=== PATIENT | female | born 1935 | race Caucasian/White ===

== ENCOUNTER 2016-06-02 14:35 | Emergency (ER) | payer OTHER, BC ==
--- NOTE | 2016-06-02 20:06 | ED ORDER SUMMARY ---
..... Patient: NELSON MCNAMARA [facility] VisitID: [id number] [address] [place], [place] [id number] 80y, F Registration Date/Time: 06/02/2016 ORDER SHEET Weight: 65.7 kg (stated) Allergies: Aricept, Namenda GENERAL ORDERS: UA-Culture if indicated Urgent (15:07 06/02/2016 Estrella Turner) (Ack 15:09 Kami) (16:24 KPage-Kuchan R.N.) Cardiac Panel Stat (15:07 06/02/2016 Estrella Turner) (Ack 15:09 Kami) (15:19 KPage-Kuchan R.N.) Amylase Urgent (15:07 06/02/2016 Estrella Turner) (Ack 15:09 Kami) (15:19 KPage-Kuchan R.N.) Lipase Urgent (15:07 06/02/2016 Estrella Turner) (Ack 15:09 Kami) (15:19 KPage-Kuchan R.N.) EKG - ER Stat (15:07 06/02/2016 Estrella Turner) (Ack 15:09 Kami) (15:09 PWeiler ER Tech1) Ethyl Alcohol Urgent (15:08 06/02/2016 Estrella Turner) (Ack 15:09 Kami) (15:19 KPage-Kuchan R.N.) CT Head wo Cont Urgent (17:25 06/02/2016 Estrella Turner) (Ack 17:28 Kami) (Cancelled: Physician Order19:41 Estrella Turner) TSH Urgent (18:34 06/02/2016 Estrella Turner) (Ack 18:37 LNations ER Tech1) (19:35 KPage-Kuchan R.N.) Chest 1V Urgent (20:17 06/02/2016 Estrella Turner) (Ack 20:21 AMcQuoid ER Tech1) (20:29 MCampbell) MEDICATION ORDERS: IV FLUIDS: IV NS : initial bolus none -, then 1000 mL/hr for X1 (NOW) (15:06 06/02/2016 Estrella Turner) (15:32 Nelia Encinas) Zofran IV 4 mg (NOW) (15:07 06/02/2016 Estrella Turner) (15:19 Nelia Encinas) ORDER SHEET NOTES: [Electronically signed by Bakari Rivera Dr. (21:40 06/02/2016)] [Electronically signed by Martha Velasquez R.N. (22:32 06/02/2016)] [Electronically locked/signed by Martha Velasquez R.N. (22:32 06/02/2016)]
--- NOTE | 2016-06-02 20:06 | ED CLINICAL REPORT ---
Clinical Report - Physicians/Mid Levels [facility] [address] [place] [address] 06/02/2016 14:39 Patient: NELSON MCNAMARA Time Seen: 14:40; initial patient contact. Arrived- By ambulance. Historian- patient. HISTORY OF PRESENT ILLNESS The patient recovered at the scene (lasted a few seconds). Chief Complaint: SINGLE SYNCOPAL EPISODE. This occurred just prior to arrival. This did not occur during exertion. At time of event, she was sitting. The patient felt faint and lost consciousness. No seizure activity, incontinence or apnea noted. The patient had preceding symptoms of light-headedness. No preceding symptoms of chest pain. No injuries noted. She currently has weakness. Similar symptoms previously: None. Recent medical care: Not recently seen/assessed. REVIEW OF SYSTEMS No headache, chest pain, palpitations, abdominal pain or vomiting. No diarrhea. She has had dizziness and weakness. All systems otherwise negative, except as recorded above. PAST HISTORY ( Hyperlipidemia. Degenerative Joint Disease. Vitamin B12 deficiency (non anemic). Vitamin D deficiency. Alcohol Intoxication. Fall. Depression. Dementia. Hypothyroidism. Hypertension). Medications: Ergocalciferol Oral. Escitalopram Oxalate Oral (Tablet 5 mg) 1 tablet, daily. Hydroxychloroquine Sulfate Oral (Tablet 200 mg) 1 tablet, BID. Ibuprofen Oral (Tablet 800 mg) 1 tablet, 3x a day. Levothyroxine Sodium Oral 175 mcg, daily. Simvastatin Oral (Tablet 20 mg) 1 tablet, daily. Valsartan Oral (Tablet 40 mg) 1 tablet, daily. Vitamin B-12 Oral (Tablet 1000 mcg) 1 tablet, daily (SL). Allergies: Aricept. Namenda. SOCIAL HISTORY Never smoker. Regular alcohol use. No drug use. ADDITIONAL NOTES The nursing notes have been reviewed. PHYSICAL EXAM Vital Signs: 06/02/2016 14:41 BP: 200/85. HR: 73. RR: 21. O2 saturation: 96%. Temp: 98.2 F. Have been reviewed. Hypertensive. Heart rate normal. Tachypneic. Temperature normal. Oxygen saturation normal. Appearance: Alert. No acute distress. Eyes: Pupils equal, round and reactive to light. Extraocular movements normal. ENT: Normal ENT inspection. Moist mucous membranes. Neck: Normal inspection. Neck supple. CVS: Normal heart rate and rhythm. Heart sounds normal. Respiratory: No respiratory distress. Breath sounds normal. Skin: Skin warm and dry. Normal skin color. No rash. Extremities: No calf tenderness. No lower extremity edema. Neuro: Alert. Oriented X 3. Mood/affect normal. Speech normal. Cranial nerves normal (as tested). No motor deficit. No sensory deficit. LABS, X-RAYS, AND EKG EKG: EKG time: (1455). No acute process. No acute ischemia. Normal EKG. Normal sinus rhythm. Rate: 77. Normal P waves. Normal YAAKOV. Normal QRS complex. Normal axis. Normal ST and T waves. Prolonged QTc (475). Prior EKG unavailable. The study has been interpreted contemporaneously by me. The study has been independently viewed by me. The EKG appears to be a good tracing. Interpretation time: 1455. Chest X-ray: No acute disease. Normal lung markings present. No infiltrate. Views: AP. Technique: good. The X-rays were independently viewed by me and interpreted contemporaneously by me. A comparison with prior films reveals that the findings are unchanged. Interpretation time: 20:35. Laboratory Tests: UA-Culture if indicated: (TRACIE: 06/02/2016 15:44) ( MsgRcvd 06/02/2016 16:21) Final results Test Result Flag Units (Reference) URINE COLOR YELLOW URINE APPEARANCE CLEAR URINE GLUCOSE NEGATIVE (NEGATIVE) URINE BILIRUBIN NEGATIVE (NEGATIVE) URINE KETONE NEGATIVE (NEGATIVE) URINE SPECIFIC GRAVITY >= 1.030 (1.010-1.030) URINE PH 5.0 (5.0-8.0) URINE PROTEIN NEGATIVE (NEGATIVE) URINE UROBILINOGEN 0.2 EU/dL (0.2-1.0) URINE NITRITE NEGATIVE (NEGATIVE) URINE BLOOD NEGATIVE (NEGATIVE) URINE LEUK ESTERASE NEGATIVE (NEGATIVE) URINE RBC NONE SEEN rbc/hpf (0-1) URINE WBC NONE SEEN wbc/hpf (0-1) URINE EPITHELIAL CELLS 1-3 EPI/hpf (0-5) URINE BACTERIA FEW (1+) (NONE SEEN) URINE COMMENT CULT NOT INDICATED URINE CULTURES ARE SET-UP BASED ON THE FOLLOWING CRITERIA:POSITIVE NITRITEPOSITIVE LEUKOCYTE ESTERASEGREATER THAN 10 WHITE BLOOD CELLSMODERATE (2+) OR GREATER BACTERIA CBC w Diff: (TRACIE: 06/02/2016 15:03) ( [facility] 06/02/2016 15:40) Final results Test Result Flag Units (Reference) WHITE BLOOD COUNT 6.8 K/uL (4.5-11.5) RED BLOOD COUNT 4.14 M/uL (4.00-5.20) HEMOGLOBIN 13.3 gm/dL (12.0-16.0) HEMATOCRIT 39.7 % (36.0-46.0) MEAN CELL VOLUME 96 fL (80-100) MEAN CORPUSCULAR HGB 32 pg (26-34) MEAN CORPUSCULAR HGB CONC 33 g/dL (31-37) RED CELL DISTRIBUTION WIDTH 14.2 % (11.6-14.8) PLATELET COUNT 164 K/uL (150-400) NEUTROPHIL % 73.3 % (50-75) LYMPH % 16.5 L % (25-40) MONO % 7.8 % (3-14) EOSINOPHIL % 2.0 % (0-4) BASOPHIL % 0.4 % (0-2) TSH: (TRACIE: 06/02/2016 15:03) ( [facility] 06/02/2016 19:04) Final results Test Result Flag Units (Reference) THYROID STIMULATING HORMONE 0.379 uIU/mL (0.30-3.74) CHEM 13 PANEL: (TRACIE: 06/02/2016 15:03) ( [facility] 06/02/2016 16:00) Final results Test Result Flag Units (Reference) GLUCOSE 99 mg/dL (70-110) BUN 16 mg/dL (7-18) CREATININE 0.7 mg/dL (0.6-1.3) Estimated GFR >60 mL/min Estimated GFR- >60 mL/min Note: Persistent reduction over 3 months in eGFR<60 mL/min/1.73 m2 defines CKD. Patients with eGFR values>=60 mL/min/1.73 m2 may also have CKD if evidence ofpersistent proteinuria. Additional information may be foundat www.kidney.org. SODIUM 144 mmol/L (136-145) POTASSIUM 4.1 mmol/L (3.5-5.1) CHLORIDE 108 H mmol/L (98-107) CARBON DIOXIDE 23 mmol/L (21-32) CALCIUM 9.4 mg/dL (8.5-10.1) TOTAL PROTEIN 6.9 g/dL (6.4-8.2) ALBUMIN 3.7 g/dL (3.3-5.0) BILIRUBIN, TOTAL 0.4 mg/dL (0.0-1.0) ALKALINE PHOSPHATASE 86 U/L (46-116) AST (SGOT) 19 U/L (15-37) ALT (SGPT) 9 L U/L (12-78) MAGNESIUM 1.8 mg/dL (1.8-2.4) LIPASE 136 U/L (73-393) AMYLASE 39 U/L (25-115) CPK 81 U/L (24-260) TROPONIN I <0.05 ng/mL (0.00-1.5) TROPONIN REFERENCE RANGE:<0.1 NEGATIVE0.1-1.5 INDETERMINANT>1.5 POSITIVE ETHYL ALCOHOL 3 mg/dL (3-10) . PROGRESS AND PROCEDURES Discussed case with hospitalist, (Dr. Plasencia at [facility]. Will accept pt to tele.). Consult obtained from cardiology. Dr. Tara MCCRAY cardiology at [facility], will consult on pt, admit to hospitalist. Disposition: Condition: stable. CLINICAL IMPRESSION Syncope of unknown cause .12 lead EKG performed. Paroxysmal ventricular tachycardia. No Torsade De Pointes, cardiac arrest or sudden . INSTRUCTIONS Follow-up: Blood pressure screening was not performed during this visit because the patient has an active diagnosis of hypertension. (Electronically signed by Bakari Rivera Dr. 06/02/2016 21:40)
--- NOTE | 2016-06-02 20:06 | ED NURSING NOTES ---
Clinical Report - Nurses [facility] [address] [place] [address] 06/02/2016 14:39 Patient: NELSON MCNAMARA TRIAGE Triage time 14:41 May 12 2016. Acuity: LEVEL 2. Chief Complaint: SYNCOPE and (pt from [facility] was playing bingo and had a 4 second syncopal episode, pt returned to baseline per ems/staff- ems found pt diaphoretic after having been ambulated back to room by staff. glucose per ems/wnl, denies injury or pain). Alert. No acute distress. SEPSIS SCREEN: Sepsis Screen: negative. Negative (no infection suspected/documented). MARCIE COMA SCORE: Marcie Coma Scale: 15- eyes open spontaneously (4); best verbal response- oriented x 4 (5); best motor response- obeys commands (6). --14:53 Martha Velasquez R.N. 14:41 06/02/16. BP: 200/85. HR: 73. RR: 21. O2 saturation: 96%. Temp: 98.2 F. Pain level now 0/10. --14:53 Martha Velasquez R.N. Weight: 65.7 kg stated. Height/Length: 65 inches Estimated. BMI: 24.1. --14:51 Martha Velasquez R.N. Medications Escitalopram Oxalate Oral (Tablet 5 mg) 1 tablet, daily. Hydroxychloroquine Sulfate Oral (Tablet 200 mg) 1 tablet, BID. Ibuprofen Oral (Tablet 800 mg) 1 tablet, 3x a day. Levothyroxine Sodium Oral 175 mcg, daily. Simvastatin Oral (Tablet 20 mg) 1 tablet, daily. Valsartan Oral (Tablet 40 mg) 1 tablet, daily. Vitamin B-12 Oral (Tablet 1000 mcg) 1 tablet, daily (). --15:29 Martha Velasquez R.N. Ergocalciferol Oral. --15:30 Martha Velasquez R.N. Medication/allergy information source: EMS and other (facility provided). --14:53 Martha Velasquez R.N. Allergies Aricept. Namenda. --15:29 Martha Velasquez R.N. History Arrived by EMS. Historian: EMS. ( pt reports no pain prior "I just felt like I was going to pass out" pt states woke normal, did her workout, pt does reports she hasn't eaten yet today, pt a/o to self, place, where she lives - not to date). She has had generalized weakness. 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 (250ml NS bolus by ems). See EMS report. SOCIAL HX: Never smoker. Occasional alcohol use; consumes wine by the glass. No infectious disease exposure. SKIN INTEGRITY ASSESSMENT: Skin integrity risk assessment was performed. Risk factors identified include other factors (age). ABUSE ASSESSMENT: No report of abuse. SELF HARM ASSESSMENT: A self harm assessment was performed. The patient answered "no" to the question "Have you recently felt down, depressed, or hopeless?", "Have you noticed less interest or pleasure in doing things?", "Do you have thoughts of harming or killing yourself?", "Are you here because you tried to hurt yourself?", "Have you ever tried to hurt yourself before today?", "Have you recently had thoughts about harming or killing others?" and "Do you have any dangerous items in your possession?". NUTRITIONAL RISK ASSESSMENT: The nutritional risk assessment revealed no deficiencies. FALL RISK ASSESSMENT: Fall risk assessment completed. Risk factors identified include nausea and patient age greater than 65 years, history of fainting and impairment of mobility and cognition. Fall interventions initiated. Patient placed on stretcher. Side rails up x2. Brakes on Bed in low position. Patient visible from nurses' station and identified as a fall risk by ID band. Call light in reach of patient. Instructed not to get up without assistance. FUNCTIONAL ASSESSMENT: Functional assessment performed: independent with the activities of daily living; cognitive impairment- Alzheimer's disease. LEARNING NEEDS ASSESSMENT: A learning needs assessment was performed. Factors affecting the patient's ability to learn include cognitive limitations. --14:53 Page-Kuchan, Karyol, R.N. PROBLEMS: Hyperlipidemia. Degenerative Joint Disease. Vitamin B12 deficiency (non anemic). Vitamin D deficiency. Alcohol Intoxication. Fall. Depression. Dementia. Hypothyroidism. Hypertension. --15:31 Martha Velasqeuz R.N. Interventions ID and allergy band on patient. ID and allergy band checked. SYNCOPE protocol initiated at triage. To treatment room. --14:53 Martha Velasquez R.N. PHYSICAL ASSESSMENT To room via stretcher. Patient gowned. GENERAL / NEURO / PSYCH: Appears in no acute distress. The patient is disoriented to time. Speech within normal limits. Patient appears well-nourished and neat and clean. HEENT: Pupils equal, round and reactive to light. RESPIRATORY: Respirations not labored. Breath sounds within normal limits. CVS: Cardiac rhythm: (SR). Capillary refill less than 2 seconds. GI / : Abdomen soft and nontender. Bowel sounds within normal limits. SKIN: Skin is warm and dry. Normal skin turgor. --14:54 Martha Velasquez R.N. NURSING PROGRESS NOTES Cardiac rhythm: (SR). monitor tech, pulse oximeter and NIBP monitor placed on patient; monitoring and evaluation advisor- Lead II and V5; monitor alarms on. EKG time: (14:50 Jun 02 2016). EKG was performed by a tech. Head of bed elevated. Reassurance given. Two patient identifiers checked. Call light placed in reach. Side rails up x 2. Bed placed in lowest position. Brakes of bed on. Patient ready for evaluation- chart flagged. --14:55 Martha Velasquez R.N. 14:57 06/02/16. BP: 134/67. HR: 80. RR: 19. O2 saturation: 96%. Pain level now 0/10. --14:58 Martha Velasquez R.N. ( pt had some dry heaving upon arrival ,pt reports improved,). --14:58 Martha Velasquez R.N. Checked patient name and birthdate: patient confirmed. Blood samples drawn by tech per protocol and sent to lab: errol set. --14:58 Martha Velasquez R.N. EKG time: (1455). EKG was ordered, performed by oralia wallace and shown to the ED physician. --15:09 Jabier Leonard, ALEX Tech1 15:08 06/02/2016 Site #1 started via IV antecubital space with an 20g angiocath; one attempt. Blood drawn: rainbow set. Labeled in the presence of the patient and sent to the lab. Saline lock flushed with 10 mL saline. --15:18 Martha Velasquez R.N. 15:14 06/02/2016 Zofran (Ondansetron HCl) IVP 4 mg given. via site #1. Allergies verified and confirmed 5 rights. IV patency established. IV site checked: no pain, redness, or swelling. IV flushed thoroughly pre- and post-medication administration. IVP given by RN. --15:19 Martha Velasquez R.N. 15:02 06/02/16. BP: 134/76 taken while lying. HR: 77. 15:02 06/02/16. BP: 148/72 taken while sitting. HR: 81. Additional comments: pt with position change became nauseated, aware and new orders for antiemetic and fluids. 14:57 06/02/16. BP: 134/67. HR: 80. RR: 19. O2 saturation: 96%. Pain level now 0/10. 14:41 06/02/16. BP: 200/85. HR: 73. RR: 21. O2 saturation: 96%. Temp: 98.2 F. Pain level now 0/10. --15:21 Martha Velasquez R.N. 15:32 06/02/2016 Started bag #1 1000 mL IV Fluids IV NS (Saline); at 1000 mL/hr via site #1 via dial-a-flow. Allergies verified and confirmed 5 rights. IV patency established. IV site checked: no pain, redness, or swelling. IV flushed thoroughly pre- and post-medication administration. --15:32 Martha Velasquez R.N. In/out catheterization. During procedure hand hygiene observed and sterile equipment and aseptic technique used. She tolerated procedure well. Patient ID band checked for patient name urine collected with return of yellow-colored urine; sample sent to lab for urinalysis. Specimen labeled in the presence of the patient (straight cath). --15:41 Martha Velasquez R.N. 15:58 06/02/16. BP: 132/74. HR: 78. Pain level now 0/10. --16:00 Martha Velasquez R.N. ( pt had a 35 beat run of vtach, pt reported not noticing "anything" cardiac strip printed , code cart placed outside pts room. will notify ). --16:00 Martha Velasquez R.N. 15:45. ( Patient had 35 beat run of V Tach which resolved on it's own. States feels OK. BP 125/60). --16:07 Nate Cash R.N. 16:24 06/02/2016 Zofran IVP Response: no adverse reaction symptoms have improved the patient feels better. --16:24 Martha Velasquez R.N. ( pt resting quietly, no further dysrhytmias on monitor, pt with call light in hand, watching tv, waiting on Mds further poc). --17:28 Martha Velasquez R.N. Cardiac rhythm: (SR). Head of bed elevated. Reassurance given. Call light placed in reach. Side rails up x 2. Bed placed in lowest position. Brakes of bed on. --17:29 Martha Velasquez R.N. 17:29 06/02/16. BP: 129/59. HR: 79. RR: 17. O2 saturation: 97%. Pain level now 0/10. --17:29 Martha Velasquez R.N. ( pt cont to have runs of vtach, aware, pt moved to room 1 for inc observation and room. pt does not appear to know when she is going in/out of dysrhytmia. pt denies pain,). --18:36 Martha Velasquez R.N. The patient is calm and resting quietly. --18:36 Martha Velasquez R.N. 17:09 06/02/16. ( pads placed on pt for cont runs of vtach,). --18:37 Martha Velasquez R.N. ( repeat ekg in progress). --18:38 Martha Velasquez R.N. monitor tech, pulse oximeter and NIBP monitor placed on patient; monitoring and evaluation advisor- Lead II and V5; monitor alarms on (continuos monitoring with RN at bedside). Two patient identifiers checked. Call light placed in reach. Side rails up x 2. Bed placed in lowest position. Brakes of bed on. --18:38 Martha Velasquez R.N. 18:24 06/02/2016 Site #2 started via IV antecubital space with an 18g angiocath; one attempt. Saline lock flushed with saline. --18:39 Martha Velasqeuz R.N. Cardiac rhythm: (SR wtih intermittent runs of vtabillie- MD aware). --18:40 Martha Velasquez R.N. --18:40 Martha Velasquez R.N. ( 1803 O2/2L NC in place). --18:41 Martha Velasquez R.N. 18:51 06/02/16. BP: 140/71. HR: 81. --18:56 Martha Velasquez R.N. ( pts son and poa called [facility], notified him on his mothers status, he is going to contact his sister and be enroute). --18:58 Martha Velasquez R.N. The patient reports no complaints and she is calm and resting quietly. GENERAL / NEURO / PSYCH: Patient is calm and cooperative. Alert. RESPIRATORY: No respiratory distress. CVS: Cardiac rhythm: sinus rhythm; ventricular tachycardia; (SR with runs of vtach). --19:03 Martha Velasquez R.N. 19:03 06/02/16. BP: 149/71. HR: 76. RR: 19. Pain level now 0/10. --19:03 Martha Velasquez R.N. Call light placed in reach. Side rails up. Bed placed in lowest position. Brakes of bed on. --19:04 Martha Velasquez R.N. ( pt remains on 12 lead to capture pts rhythm if she goes in/out of vtach. pt in SR, assisted on to bedpan, pt voided 155 ml clear yellow urine, pt denies pain, remains at baseline mentation from presentation. pt cont on code monitor, maee, able to make needs know, in front view of nurses station.). --19:34 Martha Velasquez R.N. 19:05 06/02/16. BP: 143/74. HR: 79. RR: 17. O2 saturation: 97%. Pain level now 0/10. --19:34 Martha Velasquez R.N. The patient is calm and resting quietly. --19:37 Martha Velasquez R.N. ( EDT attempting to find bed placement for pt-multiple facilities being contacted). --19:37 Martha Velasquez R.N. ( pt resting quietly, cont in SR on the monitor, pt remains on ekg , speaking with team at in preparation for admission.). --19:46 Martha Velasquez R.N. ( report called to - Lolita DICK- Lolita stated she was part of the team receiving report when Dr Rivera called , she requested copies of ekg, any imaging along with labs and chart.). --20:19 Martha Velasquez R.N. 19:54 06/02/16. ( son and daughter homer arrived at bedside, explained to family plans for transfer to - EDT contacted [facility] with eta of 2044. pt cont in SR, on 12 lead,). --20:21 Martha Velasquez R.N. Call light placed in reach. Side rails up x 1. Bed placed in lowest position. Brakes of bed on. --20:21 Martha Velasquez R.N. Patient waiting for transportation. --20:23 Martha Velasquez R.N. ( pcxr at bedside,). --20:23 Martha Velasquez R.N. ( pt had short run of vtach, pt otherwise in SR, strip printed and placed on chart, waiting [facility] arrival,). --20:53 Martha Velasquez R.N. 20:37 06/02/16. HR: 77. RR: 18. O2 saturation: 97%. Temp: 98.1 F. Pain level now 0/10. --20:53 Martha Velasquez R.N. ( transport here, preparing pt for dc). --20:53 Martha Velasquez R.N. DISPOSITION / DISCHARGE Cardiac rhythm: (SR with runs of vtach). Departure time: 21:03 Jun 02 2016. Discharge instructions provided and reviewed with the family (son and daughter in law). Treatments reviewed (info provided to [facility]). The patient was discharged by the physician. She was discharged home. Transferred to [facility]. Summary of care provided to transport team, EMS, family and transfer facility. Transported via stretcher by nurse and EMS with monitor, defibrillator, IV, O2 and emergency medications. Report was given to a nurse in person. Report included patient's care, treatment, medications, reviewed medication reconcilliation, and condition (including any recent changes or anticipated changes). All questions were answered. Report was acknowledged and care was transferred. ([facility]). Patient's personal items include: shirt, pants, undergarments, socks and jewelry, given to son including clothing and necklace; items were placed in belongings bag. --21:04 Martha Velasquez R.N. 20:53 06/02/16. BP: 128/78. HR: 74. RR: 18. O2 saturation: 97%. Pain level now 0/10. --21:04 Martah Velasquez R.N. Locked/Released at 06/02/2016 22:32 by Martha Velasquez R.N.
--- NOTE | 2016-06-02 20:06 | ED CLINICAL REPORT ---
Clinical Report - Physicians/Mid Levels [facility] [address] [place] [address] 06/02/2016 14:39 Patient: NELSON MCNAMARA Time Seen: 14:40; initial patient contact. Arrived- By ambulance. Historian- patient. HISTORY OF PRESENT ILLNESS The patient recovered at the scene (lasted a few seconds). Chief Complaint: SINGLE SYNCOPAL EPISODE. This occurred just prior to arrival. This did not occur during exertion. At time of event, she was sitting. The patient felt faint and lost consciousness. No seizure activity, incontinence or apnea noted. The patient had preceding symptoms of light-headedness. No preceding symptoms of chest pain. No injuries noted. She currently has weakness. Similar symptoms previously: None. Recent medical care: Not recently seen/assessed. REVIEW OF SYSTEMS No headache, chest pain, palpitations, abdominal pain or vomiting. No diarrhea. She has had dizziness and weakness. All systems otherwise negative, except as recorded above. PAST HISTORY ( Hyperlipidemia. Degenerative Joint Disease. Vitamin B12 deficiency (non anemic). Vitamin D deficiency. Alcohol Intoxication. Fall. Depression. Dementia. Hypothyroidism. Hypertension). Medications: Ergocalciferol Oral. Escitalopram Oxalate Oral (Tablet 5 mg) 1 tablet, daily. Hydroxychloroquine Sulfate Oral (Tablet 200 mg) 1 tablet, BID. Ibuprofen Oral (Tablet 800 mg) 1 tablet, 3x a day. Levothyroxine Sodium Oral 175 mcg, daily. Simvastatin Oral (Tablet 20 mg) 1 tablet, daily. Valsartan Oral (Tablet 40 mg) 1 tablet, daily. Vitamin B-12 Oral (Tablet 1000 mcg) 1 tablet, daily (SL). Allergies: Aricept. Namenda. SOCIAL HISTORY Never smoker. Regular alcohol use. No drug use. ADDITIONAL NOTES The nursing notes have been reviewed. PHYSICAL EXAM Vital Signs: 06/02/2016 14:41 BP: 200/85. HR: 73. RR: 21. O2 saturation: 96%. Temp: 98.2 F. Have been reviewed. Hypertensive. Heart rate normal. Tachypneic. Temperature normal. Oxygen saturation normal. Appearance: Alert. No acute distress. Eyes: Pupils equal, round and reactive to light. Extraocular movements normal. ENT: Normal ENT inspection. Moist mucous membranes. Neck: Normal inspection. Neck supple. CVS: Normal heart rate and rhythm. Heart sounds normal. Respiratory: No respiratory distress. Breath sounds normal. Skin: Skin warm and dry. Normal skin color. No rash. Extremities: No calf tenderness. No lower extremity edema. Neuro: Alert. Oriented X 3. Mood/affect normal. Speech normal. Cranial nerves normal (as tested). No motor deficit. No sensory deficit. LABS, X-RAYS, AND EKG EKG: EKG time: (1455). No acute process. No acute ischemia. Normal EKG. Normal sinus rhythm. Rate: 77. Normal P waves. Normal YAAKOV. Normal QRS complex. Normal axis. Normal ST and T waves. Prolonged QTc (475). Prior EKG unavailable. The study has been interpreted contemporaneously by me. The study has been independently viewed by me. The EKG appears to be a good tracing. Interpretation time: 1455. Chest X-ray: No acute disease. Normal lung markings present. No infiltrate. Views: AP. Technique: good. The X-rays were independently viewed by me and interpreted contemporaneously by me. A comparison with prior films reveals that the findings are unchanged. Interpretation time: 20:35. Laboratory Tests: UA-Culture if indicated: (TRACIE: 06/02/2016 15:44) ( MsgRcvd 06/02/2016 16:21) Final results Test Result Flag Units (Reference) URINE COLOR YELLOW URINE APPEARANCE CLEAR URINE GLUCOSE NEGATIVE (NEGATIVE) URINE BILIRUBIN NEGATIVE (NEGATIVE) URINE KETONE NEGATIVE (NEGATIVE) URINE SPECIFIC GRAVITY >= 1.030 (1.010-1.030) URINE PH 5.0 (5.0-8.0) URINE PROTEIN NEGATIVE (NEGATIVE) URINE UROBILINOGEN 0.2 EU/dL (0.2-1.0) URINE NITRITE NEGATIVE (NEGATIVE) URINE BLOOD NEGATIVE (NEGATIVE) URINE LEUK ESTERASE NEGATIVE (NEGATIVE) URINE RBC NONE SEEN rbc/hpf (0-1) URINE WBC NONE SEEN wbc/hpf (0-1) URINE EPITHELIAL CELLS 1-3 EPI/hpf (0-5) URINE BACTERIA FEW (1+) (NONE SEEN) URINE COMMENT CULT NOT INDICATED URINE CULTURES ARE SET-UP BASED ON THE FOLLOWING CRITERIA:POSITIVE NITRITEPOSITIVE LEUKOCYTE ESTERASEGREATER THAN 10 WHITE BLOOD CELLSMODERATE (2+) OR GREATER BACTERIA CBC w Diff: (TRACIE: 06/02/2016 15:03) ( [facility] 06/02/2016 15:40) Final results Test Result Flag Units (Reference) WHITE BLOOD COUNT 6.8 K/uL (4.5-11.5) RED BLOOD COUNT 4.14 M/uL (4.00-5.20) HEMOGLOBIN 13.3 gm/dL (12.0-16.0) HEMATOCRIT 39.7 % (36.0-46.0) MEAN CELL VOLUME 96 fL (80-100) MEAN CORPUSCULAR HGB 32 pg (26-34) MEAN CORPUSCULAR HGB CONC 33 g/dL (31-37) RED CELL DISTRIBUTION WIDTH 14.2 % (11.6-14.8) PLATELET COUNT 164 K/uL (150-400) NEUTROPHIL % 73.3 % (50-75) LYMPH % 16.5 L % (25-40) MONO % 7.8 % (3-14) EOSINOPHIL % 2.0 % (0-4) BASOPHIL % 0.4 % (0-2) TSH: (TRACIE: 06/02/2016 15:03) ( [facility] 06/02/2016 19:04) Final results Test Result Flag Units (Reference) THYROID STIMULATING HORMONE 0.379 uIU/mL (0.30-3.74) CHEM 13 PANEL: (TRACIE: 06/02/2016 15:03) ( [facility] 06/02/2016 16:00) Final results Test Result Flag Units (Reference) GLUCOSE 99 mg/dL (70-110) BUN 16 mg/dL (7-18) CREATININE 0.7 mg/dL (0.6-1.3) Estimated GFR >60 mL/min Estimated GFR- >60 mL/min Note: Persistent reduction over 3 months in eGFR<60 mL/min/1.73 m2 defines CKD. Patients with eGFR values>=60 mL/min/1.73 m2 may also have CKD if evidence ofpersistent proteinuria. Additional information may be foundat www.kidney.org. SODIUM 144 mmol/L (136-145) POTASSIUM 4.1 mmol/L (3.5-5.1) CHLORIDE 108 H mmol/L (98-107) CARBON DIOXIDE 23 mmol/L (21-32) CALCIUM 9.4 mg/dL (8.5-10.1) TOTAL PROTEIN 6.9 g/dL (6.4-8.2) ALBUMIN 3.7 g/dL (3.3-5.0) BILIRUBIN, TOTAL 0.4 mg/dL (0.0-1.0) ALKALINE PHOSPHATASE 86 U/L (46-116) AST (SGOT) 19 U/L (15-37) ALT (SGPT) 9 L U/L (12-78) MAGNESIUM 1.8 mg/dL (1.8-2.4) LIPASE 136 U/L (73-393) AMYLASE 39 U/L (25-115) CPK 81 U/L (24-260) TROPONIN I <0.05 ng/mL (0.00-1.5) TROPONIN REFERENCE RANGE:<0.1 NEGATIVE0.1-1.5 INDETERMINANT>1.5 POSITIVE ETHYL ALCOHOL 3 mg/dL (3-10) . PROGRESS AND PROCEDURES Discussed case with hospitalist, (Dr. Plasencia at [facility]. Will accept pt to tele.). Consult obtained from cardiology. Dr. Tara MCCRAY cardiology at [facility], will consult on pt, admit to hospitalist. Disposition: Condition: stable. CLINICAL IMPRESSION Syncope of unknown cause .12 lead EKG performed. Paroxysmal ventricular tachycardia. No Torsade De Pointes, cardiac arrest or sudden . INSTRUCTIONS Follow-up: Blood pressure screening was not performed during this visit because the patient has an active diagnosis of hypertension. (Electronically signed by Bakari Rivera Dr. 06/02/2016 21:40)
--- NOTE | 2016-06-02 20:06 | ED ORDER SUMMARY ---
..... Patient: NELSON MCNAMARA OrderSheet [facility] VisitID: [id number] [address] [place], [place] [id number] 80y, F Registration Date/Time: 06/02/2016 ORDER SHEET Weight: 65.7 kg (stated) Allergies: Aricept, Namenda GENERAL ORDERS: UA-Culture if indicated Urgent (15:07 06/02/2016 Estrella Turner) (Ack 15:09 Kami) (16:24 KPage-Kuchan R.N.) Cardiac Panel Stat (15:07 06/02/2016 Estrella Turner) (Ack 15:09 Kami) (15:19 KPage-Kuchan R.N.) Amylase Urgent (15:07 06/02/2016 Estrella Turner) (Ack 15:09 Kami) (15:19 KPage-Kuchan R.N.) Lipase Urgent (15:07 06/02/2016 Estrella Turner) (Ack 15:09 Kami) (15:19 KPage-Kuchan R.N.) EKG - ER Stat (15:07 06/02/2016 Estrella Turner) (Ack 15:09 Kami) (15:09 PWeiler ER Tech1) Ethyl Alcohol Urgent (15:08 06/02/2016 Estrella Turner) (Ack 15:09 Kami) (15:19 KPage-Kuchan R.N.) CT Head wo Cont Urgent (17:25 06/02/2016 Estrella Turner) (Ack 17:28 Kami) (Cancelled: Physician Order19:41 Estrella Turner) TSH Urgent (18:34 06/02/2016 Estrella Turner) (Ack 18:37 LNations ER Tech1) (19:35 KPage-Kuchan R.N.) Chest 1V Urgent (20:17 06/02/2016 Estrella Turner) (Ack 20:21 AMcQuoid ER Tech1) (20:29 MCampbell) MEDICATION ORDERS: IV FLUIDS: IV NS : initial bolus none -, then 1000 mL/hr for X1 (NOW) (15:06 06/02/2016 Estrella Turner) (15:32 Nelia Encinas) Zofran IV 4 mg (NOW) (15:07 06/02/2016 Estrella Turner) (15:19 Nelia Encinas) ORDER SHEET NOTES: [Electronically signed by Bakari Rivera Dr. (21:40 06/02/2016)] [Electronically signed by Martha Velasquez R.N. (22:32 06/02/2016)] [Electronically locked/signed by Martha Velasquez R.N. (22:32 06/02/2016)]
--- NOTE | 2016-06-02 21:09 | DIAGNOSTIC IMAGING REPORT ---
PROCEDURE: XR CHEST 1 VIEW INDICATION: SHORTNESS OF BREATH TECHNIQUE: Portable AP view 08:25 p.m. COMPARISON: None. FINDINGS: Lungs are clear. Heart and mediastinum are normal. Thorax is normal. IMPRESSION: 1. Negative chest.
--- NOTE | 2016-06-02 22:32 | ED MAR SUMMARY ---
..... Medication Administration Record [facility] [address] [place] [address] Patient: NELSON MCNAMARA Visit ID: [id number] 80y, F Weight: 65.7 kg Height/Length: 65 in BMI: 24.1 ALLERGIES: Aricept, Namenda Given 15:14 06/02/2016 Martha Velasquez R.N. Medication Administered: ZOFRAN [IVP] (ONDANSETRON HCL), Dose: 4 mg IVP, Site: #1 AC. Medication Ordered: Zofran IV 4 mg (NOW). Start 15:32 06/02/2016 Martha Velasquez R.N. Medication Administered: IV NS (SALINE), Dose: IV Fluids, Rate: 1000 mL/hr, Dispensed: 1000 mL bag, Site: #1 AC. Medication Ordered: IV NS : initial bolus none -, then 1000 mL/hr for X1 (NOW).
--- NOTE | 2016-06-02 22:32 | ED DISCHARGE INSTRUCTIONS ---
Patient: NELSON MCNAMARA General Instructions [facility] VisitID: [id number] [address] [place] [address] 80y, F Registration Date/Time: 06/02/2016 Syncope of unknown cause .12 lead EKG performed. Paroxysmal ventricular tachycardia. No Torsade De Pointes, cardiac arrest or sudden . INSTRUCTIONS Follow-up: Blood pressure screening was not performed during this visit because the patient has an active diagnosis of hypertension. (Electronically signed by Bakari Rivera Dr. 06/02/2016 21:40)
--- NOTE | 2016-06-02 22:32 | ED MAR SUMMARY ---
..... Medication Administration Record [facility] [address] [place] [place] [address] Patient: NELSON MCNAMARA Visit ID: [id number] 80y, F Weight: 65.7 kg Height/Length: 65 in BMI: 24.1 ALLERGIES: Aricept, Namenda Given 15:14 06/02/2016 Martha Velasquez R.N. Medication Administered: ZOFRAN [IVP] (ONDANSETRON HCL), Dose: 4 mg IVP, Site: #1 AC. Medication Ordered: Zofran IV 4 mg (NOW). Start 15:32 06/02/2016 Martha Velasquez R.N. Medication Administered: IV NS (SALINE), Dose: IV Fluids, Rate: 1000 mL/hr, Dispensed: 1000 mL bag, Site: #1 AC. Medication Ordered: IV NS : initial bolus none -, then 1000 mL/hr for X1 (NOW).
--- NOTE | 2016-06-02 22:32 | ED MED RECONCILIATION SUMMARY ---
Patient: NELSON MCNAMARA Medication Reconciliation Report [facility] VisitID: [id number] [address] [place] [address] 80y, F Registration Date/Time: 06/02/2016 Weight: 65.7 kg Height/Length: 65 in. BMI: 24.1 ALLERGIES: Aricept, Namenda The patient's Home Medications are listed below: THE FOLLOWING MEDICATIONS NEED TO BE RECONCILED: Ergocalciferol Oral Escitalopram Oxalate Oral (5 mg) 1 tablet, daily Hydroxychloroquine Sulfate Oral (200 mg) 1 tablet, BID Ibuprofen Oral (800 mg) 1 tablet, 3x a day Levothyroxine Sodium Oral 175 mcg, daily Simvastatin Oral (20 mg) 1 tablet, daily Valsartan Oral (40 mg) 1 tablet, daily Vitamin B-12 Oral (1000 mcg) 1 tablet, daily, SL The source(s) of the original Home Medication information: EMS other facility provided The following Medications were given to the patient in the Emergency Department: Zofran [IVP] IVP 4 mg, administered: 06/02/2016 3:14:00 PM IV NS IV Fluids bolus 0, then 1000 mL/hr, administered: 06/02/2016 3:32:00 PM The following Medications were prescribed to the patient: None.
--- NOTE | 2016-06-02 22:32 | ED MED RECONCILIATION SUMMARY ---
Patient: NELSON MCNAMARA Medication Reconciliation Report [facility] VisitID: [id number] [address] [place] [address] 80y, F Registration Date/Time: 06/02/2016 Weight: 65.7 kg Height/Length: 65 in. BMI: 24.1 ALLERGIES: Aricept, Namenda The patient's Home Medications are listed below: THE FOLLOWING MEDICATIONS NEED TO BE RECONCILED: Ergocalciferol Oral Escitalopram Oxalate Oral (5 mg) 1 tablet, daily Hydroxychloroquine Sulfate Oral (200 mg) 1 tablet, BID Ibuprofen Oral (800 mg) 1 tablet, 3x a day Levothyroxine Sodium Oral 175 mcg, daily Simvastatin Oral (20 mg) 1 tablet, daily Valsartan Oral (40 mg) 1 tablet, daily Vitamin B-12 Oral (1000 mcg) 1 tablet, daily, SL The source(s) of the original Home Medication information: EMS other facility provided The following Medications were given to the patient in the Emergency Department: Zofran [IVP] IVP 4 mg, administered: 06/02/2016 3:14:00 PM IV NS IV Fluids bolus 0, then 1000 mL/hr, administered: 06/02/2016 3:32:00 PM The following Medications were prescribed to the patient: None.
--- NOTE | 2016-06-02 22:32 | ED DISCHARGE INSTRUCTIONS ---
Patient: NELSON MCNAMARA General Instructions [facility] VisitID: [id number] [address] [place] [address] 80y, F Registration Date/Time: 06/02/2016 Syncope of unknown cause .12 lead EKG performed. Paroxysmal ventricular tachycardia. No Torsade De Pointes, cardiac arrest or sudden . INSTRUCTIONS Follow-up: Blood pressure screening was not performed during this visit because the patient has an active diagnosis of hypertension. (Electronically signed by Bakari Rivera Dr. 06/02/2016 21:40)
== END 2016-06-02 21:05 | disposition short-term general hospital (02) ==
LOC: ED SRH 14:35
DX: R55 Syncope and collapse (principal); I47.2 Ventricular tachycardia; I10 Essential (primary) hypertension; E78.5 Hyperlipidemia, unspecified; Z79.899 Other long term (current) drug therapy; Z88.8 Allergy status to other drugs, medicaments and biological substances
CPT/HCPCS: 81460; 83483; 90004; 90100; 90616; 92010; 92235; 92530; 92610; 92720; 93140; 95059